=== PATIENT | male | born 1995 | race Caucasian/White ===

== ENCOUNTER 2016-09-13 11:56 | Emergency (ER) | payer BC ==
[~2016-09-13] VITALS: Ht 177.8 cm; Wt 66.0 kg
[2016-09-13 11:58] VITALS: BP 137/66; PULSE 78; RESP 16; TEMP 98; O2SAT 99
[2016-09-13] MEDS ORDERED: BUTA1TAB30 PO (14:04)
[2016-09-13] MEDS ORDERED: MECL-62 PO (14:04)
[2016-09-13] MEDS ORDERED: IBUP800T23 PO (14:04)
--- NOTE | 2016-09-13 14:05 | PD ---
HPI Chief Complaint: Headache Time Seen by Provider: 14:05 Travel History International Travel<30 days: No Contact w/Intl Traveler<30days: No Traveled to known affect area: No History of Present Illness HPI Patient is a 20-year-old male visiting with chief complaint of headache. He states that he has been having intermittent headaches for the last week, not present currently. He states that it is frontal and bilateral and feels like a tightness or squeezing. He states they tend to start as a slight discomfort and progressed to "the headache ". Maximum intensity has been 6 out of 10. Aspirin helped minimally, Excedrin Migraine didn't help. He has no history of primary headache disorders. He denies any head injury. 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 These are not "thunderclap" headaches, not maximal intensity at onset and are not the worst headaches ever had. He states he has also been having a couple episodes of vertigo which she describes as a sensation of the room spinning. This usually last only for a few minutes and is associated with position changes. He is nauseated with this but no vomiting. He states he's had vertigo in the past. He denies any vision changes, disequilibrium, balance problems, Dysarthria, weakness or paresthesias in his extremities. He denies any confusion or changes in mentation. Although he has been having both of these symptoms for the last week they do not seem to be correlated in time as best he can tell. He denies fever, chills, nausea, vomiting neck pain/stiffness. He is otherwise healthy. He denies tobacco, ethanol and illicit drug use. [facility]LY [facility] Social History Tobacco Use: No Allergies-Medications (Allergen,Severity, Reaction): Coded Allergies: No Known Allergies (Unverified , 09/13/16) Reported Meds & Prescriptions Reported Meds & Active Scripts Active Meclizine (Meclizine HCl) 25 Mg Tab 25 Mg PO TID PRN Ibuprofen 800 Mg Tab 800 Mg PO Q8H Butalbital-Acetaminophen 50-325 Mg Tab 1-2 Tab PO Q6HR PRN Do not exceed 6 tablets per day. Review of Systems Except as stated in HPI: all other systems reviewed are Neg Physical Exam Narrative GENERAL: Well-developed and well-nourished adult male in no acute distress. He is smiling, interactive and appears to be in no pain. SKIN: Warm and dry. Good turgor without tenting. HEAD: Normocephalic and atraumatic. EYES: PERRL bilaterally, 5mm. EOMI bilaterally. Funduscopic exam reveals crisp optic disks bilaterally. No injection or icterus present. No proptosis. Lids without edema or erythema. ENT: Buccal mucosa pink and moist. Oropharynx free of erythema, tonsillar hypertrophy, masses, swelling, asymmetry and exudates. Uvula midline and airway patent. Harris-Hallpike maneuver negative bilaterally. NECK: Supple, no meningeal signs. Trachea midline, no JVD. No cervical or facial lymphadenopathy. CARDIOVASCULAR: Regular rate and rhythm without murmurs, rubs, clicks or gallops. Radial and posterior tibial pulses 2+ bilaterally. No pedal edema. RESPIRATORY: Clear to auscultation bilaterally with symmetrical rise and fall, no distress or use of accessory muscles. GASTROINTESTINAL: Non-tender, non-distended. Normal bowel sounds all 4 quadrants. No masses or organomegaly present. MUSCULOSKELETAL: No gait disturbances. Patient freely moving all four extremities spontaneously. Extremities without clubbing, cyanosis, or edema. No obvious deformities. NEUROLOGIC: CN II-XII grossly intact. Awake and alert. Negative Romberg and pronator drift. Hernandez and accurate finger to nose testing bilaterally. No dysdiadochokinesis. Strength 5/5 bilateral shoulder flexion, shoulder extension , shoulder abduction, shoulder adduction, elbow flexion, elbow extension. Sensation intact and strength 5/5 over radial, median, and ulnar nerve distributions bilaterally.Sensation intact L2-S2 bilaterally. Strength 5/5 in hip flexion, hip extension, knee flexion, knee extension, plantar flexion, dorsiflexion bilaterally. Bilateral triceps, biceps, brachioradialis, patellar and Achilles DTRs 2+. Negative bilateral Yemi sign. Downgoing Babinskis bilaterally. Normal speech. PSYCHIATRIC: Appropriate mood and affect; insight and judgment normal. Data Data Last Documented VS Vital Signs Date Time Temp Pulse Resp B/P Pulse Ox O2 Delivery O2 Flow Rate FiO2 09/13/16 11:58 98.0 78 16 137/66 99 Room Air MDM Medical Decision Making Medical Screen Exam Complete: Yes Emergency Medical Condition: Yes Differential Diagnosis Tension headache versus migraine headache versus vertigo versus pseudotumor cerebri unlikely versus SAH unlikely versus brain mass unlikely Narrative Course Patient is a 20-year-old male with history and physical suggestive of vertigo and tension headaches. He's had a history of vertigo in the past. He has brief symptoms of the room spinning with nausea associated with position change. He's been having some headaches which are tension type sounding are not peak intensity at onset and have been waxing and waning they have been decreasing in frequency and intensity. He currently is asymptomatic. He has no vision loss or other neurologic complaint. Neurologic exam is completely normal. At this time I do not believe any more serious etiology is present warranting emergent workup. Patient will be given prescription for butalbital, ibuprofen and meclizine and recommend that he follow-up with a PCP. I instructed him that if he develops any fever, neck pain, worsening symptoms or new symptoms to return immediately for evaluation.See discharge paperwork for further instructions. The plan was discussed with the patient who acknowledged their understanding and agreement. Reinforced the follow-up with primary care is critically important. Patient instructed on emergent conditions that should prompt return to ED. Diagnosis Primary Impression: Vertigo Additional Impression: Tension headache Patient Instructions: Benign Paroxysmal Positional Vertigo (ED), General Instructions, Tension Headache (ED) Departure Forms: Tests/Procedures, Work Release Enter return to work date: Sep 16, 2016 Additional Instructions: Take medication as prescribed Your medications may cause drowsiness. Do not take with alcohol or sedatives. Do not operate a motor vehicle or heavy machinery while on medication. Drink lots of fluids to stay well-hydrated Use caution and take her time when transferring from lying to sitting to standing Follow-up with PCP on Thursday Return to the ED for any new or worsening of symptoms Med/Other Pt SpecificInfo: Prescription(s) given Scripts Meclizine 25 Mg Tab25 Mg PO TID PRN (NAUSEA) #15 TAB Ref 0 Prov:Kvng Eugene MD 09/13/16 Ibuprofen 800 Mg Oer332 Mg PO Q8H #15 TAB Prov:Kvng Eugene MD 09/13/16 Butalbital-Acetaminophen 50-325 Mg Tab1-2 Tab PO Q6HR PRN (HEADACHE) #12 TAB Ref 0 Do not exceed 6 tablets per day. Prov:Kvng Eugene MD 09/13/16 Disposition: 01 DISCHARGE HOME Condition: Stable Jonny Ha III Sep 13, 2016 14:05
== END 2016-09-13 14:41 | disposition home or self-care (01) ==
LOC: NEPB 11:56
DX: G44.209 Tension-type headache, unspecified, not intractable (principal); R42 Dizziness and giddiness
CPT/HCPCS: 99283